=== PATIENT | male | born 1980 | race Hispanic/Latino ===

== ENCOUNTER 2016-10-25 18:15 | Emergency (ER) | payer SELFPAY | END 2016-10-25 19:40 | disposition left against medical advice (07) | LOC: ED 18:15 | DX: Z00.8 Encounter for other general examination (principal); Z53.21 Procedure and treatment not carried out due to patient leaving prior to being seen by health care provider ==

== ENCOUNTER 2022-04-25 17:39 | Emergency (ER) | payer SELFPAY | END 2022-04-25 19:54 | disposition left against medical advice (07) | LOC: ED 17:39 | DX: M25.569 Pain in unspecified knee (principal); Z53.21 Procedure and treatment not carried out due to patient leaving prior to being seen by health care provider ==